=== PATIENT | female | born 1955 | race Two or more races ===

== ENCOUNTER 2025-07-14 16:52 | Inpatient (IN) | payer MEDICARE, OTHER ==
[~2025-07-14] VITALS: Ht 157.5 cm; Wt 69.9 kg
[2025-07-14 17:39] LABS: PLATELET COUNT (AUTO) 240 K/uL (150-450); RED BLOOD CELL COUNT(AUTO) 4.03 MIL/uL (4.0-5.2); RED CELL DISTRIBUTION WIDTH 16.7 % (11.5-15.0); WHITE BLOOD COUNT (AUTO) 5.0 K/uL (4.3-11.0)
[2025-07-14 17:52] LABS: ASPARTATE AMINOTRANSFERASE 13 U/L (15-37); CALCIUM, SERUM 8.6 mg/dL (8.5-10.1); CREATININE 1.1 mg/dL (0.6-1.3); SODIUM SERUM 136 mmol/L (136-145); TOTAL PROTEIN, SERUM 7.1 g/dL (6.4-8.2); UREA NITROGEN, BLOOD 20 mg/dL (7-18)
[2025-07-14] MEDS ORDERED: DEXTROSE 50%-WATER 50 ML DISP.SYRIN IV PRN (20:00)
[2025-07-14] MEDS ORDERED: ACETAMINOPHEN 325 MG TABLET PO PRN (22:00)
[2025-07-14] MEDS ORDERED: ZOLPIDEM TARTRATE 5 MG TABLET PO PRN (22:00)
[2025-07-14] MEDS: BLOOD SUGAR DIAGNOSTIC 1 EACH STRIP IN ONE (22:24)
[2025-07-14] MEDS: BLOOD SUGAR DIAGNOSTIC 1 EACH STRIP IN SCH (22:24)
[2025-07-14] MEDS: INSULIN REGULAR, HUMAN 100 UNIT/ML 3 ML VIAL SQ PRN (22:25)
[2025-07-14] MEDS ORDERED: BENZONATATE 100 MG CAPSULE PO PRN (22:30)
[2025-07-14] MEDS ORDERED: GLUTOSE 15 G GEL..GM. PO PRN (22:30)
[2025-07-14] MEDS ORDERED: ONDANSETRON HCL 4 MG/5 ML SOLUTION PO PRN (22:30)
[2025-07-14] MEDS ORDERED: GUAIFENESIN/D-METHORPHAN HB 5 ML UDC PO PRN (22:30)
[2025-07-14] MEDS ORDERED: LACTULOSE 10 G/15 ML UDC (PYXIS) PO PRN (22:30)
[2025-07-14] MEDS ORDERED: POLYETHYLENE GLYCOL 3350 17 GM POWD.PACK PO PRN (22:30)
[2025-07-14] MEDS ORDERED: BISACODYL SUPP (10 MG) 10 MG/SUPP.RECT SUPP.RECT RC PRN (22:30)
[2025-07-14 22:35] VITALS: BP 142/72; TEMP 98.8; O2SAT 95
[2025-07-14] MEDS ORDERED: ATOR10TA PO (23:29)
[2025-07-14] MEDS ORDERED: BENZ-38 PO (23:31)
[2025-07-14] MEDS ORDERED: BENZ-13 PO (23:31)
[2025-07-14] MEDS ORDERED: BISA10SU61 RC (23:34)
[2025-07-14] MEDS ORDERED: CLON0.5T4 PO (23:37)
[2025-07-14] MEDS ORDERED: CYAN10006 IJ (23:39)
[2025-07-14] MEDS ORDERED: CYAN100096 PO (23:42)
[2025-07-14] MEDS ORDERED: CYPR4TAB44 PO (23:44)
[2025-07-14] MEDS ORDERED: DOCU100C36 PO ×2 (23:45→23:47)
[2025-07-14] MEDS ORDERED: DEXT12.511 PO (23:50)
[2025-07-14] MEDS ORDERED: GUAI100S69 PO (23:53)
[2025-07-14] MEDS ORDERED: [UNRECOGNIZED DRUG - CODE] (23:57)
[2025-07-14] MEDS ORDERED: INSU100V42 (23:59)
[2025-07-15] MEDS ORDERED: LACT10SO29 PO (00:01)
[2025-07-15] MEDS ORDERED: INSU100V7 SQ (00:01)
[2025-07-15] MEDS ORDERED: LUBI24CA5 PO (00:04)
[2025-07-15] MEDS ORDERED: POLY17PO4 PO (00:05)
[2025-07-15] MEDS ORDERED: GUAI600T53 PO (00:07)
[2025-07-15] MEDS ORDERED: ONDA4TAB11 PO (00:08)
[2025-07-15] MEDS ORDERED: PANT40TA49 PO (00:09)
[2025-07-15] MEDS ORDERED: SENN-291 PO (00:10)
[2025-07-15] MEDS ORDERED: SODI100037 PO (00:12)
[2025-07-15] MEDS: QUETIAPINE FUMARATE 25 MG TABLET PO PRN (06:00)
[2025-07-15] MEDS: PANTOPRAZOLE 40 MG TABLET.DR PO SCH (06:39)
[2025-07-15 07:25] LABS: PLATELET COUNT (AUTO) 229 K/uL (150-450); RED BLOOD CELL COUNT(AUTO) 4.29 MIL/uL (4.0-5.2); RED CELL DISTRIBUTION WIDTH 16.6 % (11.5-15.0); WHITE BLOOD COUNT (AUTO) 3.3 K/uL (4.3-11.0)
[2025-07-15] MEDS ORDERED: PANTOPRAZOLE 40 MG TABLET.DR PO SCH (07:30)
[2025-07-15 07:47] LABS: CALCIUM, SERUM 8.5 mg/dL (8.5-10.1); CREATININE 0.7 mg/dL (0.6-1.3); SODIUM SERUM 139.0 mmol/L (136-145); UREA NITROGEN, BLOOD 14.0 mg/dL (7-18)
[2025-07-15 08:00] VITALS: BP 141/71; TEMP 98.1; O2SAT 97
[2025-07-15 08:08] LABS: LDL 91 mg/dL (0-99)
[2025-07-15] MEDS ORDERED: CYANOCOBALAMIN 1,000 MCG/ML VIAL IM SCH (09:00)
[2025-07-15] MEDS ORDERED: SODIUM CHLORIDE 1000 MG TABLET PO SCH (09:00)
[2025-07-15] MEDS ORDERED: SENNOSIDES/DOCUSATE SODIUM 1 TAB TABLET PO SCH (09:00)
[2025-07-15] MEDS ORDERED: DOCUSATE SODIUM 100 MG CAPSULE PO SCH (09:00)
[2025-07-15] MEDS ORDERED: POLYETHYLENE GLYCOL 3350 17 GM POWD.PACK PO SCH (09:00)
[2025-07-15] MEDS ORDERED: INSULIN GLARGINE, 100 UNIT/ML CARTRIDGE SQ SCH (09:00)
[2025-07-15] MEDS ORDERED: GUAIFENESIN LA 600 MG TABLET.SA PO SCH (09:00)
[2025-07-15] MEDS ORDERED: HEPARIN SODIUM, PORCINE 5000 UNITS/1 ML VIAL SQ SCH ×2 (09:00)
[2025-07-15] MEDS ORDERED: LACTULOSE 10 G/15 ML UDC (PYXIS) PO SCH (09:00)
[2025-07-15] MEDS ORDERED: CYANOCOBALAMIN 500 MCG TABLET PO SCH (09:00)
[2025-07-15] MEDS: DOCUSATE SODIUM 100 MG CAPSULE PO SCH (09:32)
[2025-07-15] MEDS: SODIUM CHLORIDE 1000 MG TABLET PO SCH (09:32)
[2025-07-15] MEDS: CYANOCOBALAMIN 500 MCG TABLET PO SCH (09:32)
[2025-07-15 16:00] VITALS: BP 114/76; TEMP 97.5; O2SAT 96
[2025-07-15] MEDS: SENNOSIDES/DOCUSATE SODIUM 1 UDTAB TABLET PO SCH (17:14)
[2025-07-15] MEDS: ATORVASTATIN 10 MG TABLET PO SCH (17:29)
[2025-07-15] MEDS ORDERED: ATORVASTATIN 10 MG TABLET PO SCH ×2 (18:00→22:00)
[2025-07-15 20:14] VITALS: BP 120/78; TEMP 98.2; O2SAT 96
[2025-07-16 08:00] VITALS: BP 132/81; TEMP 98.9; O2SAT 99
[2025-07-16] MEDS: POLYETHYLENE GLYCOL 3350 17 GM POWD.PACK PO PRN (09:03)
[2025-07-16] MEDS: SERTRALINE HCL 25 MG TABLET PO SCH (14:20)
[2025-07-16] MEDS: INSULIN GLARGINE, 100 UNIT/ML CARTRIDGE SQ SCH (14:49)
[2025-07-16 16:05] VITALS: BP 124/69; TEMP 98.1; O2SAT 96
[2025-07-16 16:43] LABS: APPEARANCE,URINE CLEAR (CLEAR); BLOOD, URINE TRACE-INTA Ery/uL (NEGATIVE); LEUKOCYTE ESTERASE ,URINE NEGATIVE (NEGATIVE); NITRITE, URINE POSITIVE (NEGATIVE); UGLUCOSE 2+ mg/dL (NEGATIVE)
[2025-07-16 16:55] LABS: ADD URINE CULTURE YES; SQUAMOUS EPITHELIAL CELL,UR Moderate /HPF (None Seen)
[2025-07-16 20:00] VITALS: BP 108/67; TEMP 98.1; O2SAT 96
[2025-07-16] MEDS: QUETIAPINE FUMARATE 25 MG TABLET PO SCH (21:22)
[2025-07-17 08:00] VITALS: BP 110/73; TEMP 98.1; O2SAT 97
[2025-07-17 16:00] VITALS: BP 136/80; TEMP 98.1; O2SAT 96
[2025-07-17 21:03] VITALS: BP 118/59; TEMP 97.9; O2SAT 95
[2025-07-18 08:00] VITALS: BP 126/90; TEMP 98.1; O2SAT 100
[2025-07-18 15:40] LABS: APPEARANCE,URINE CLEAR (CLEAR); BLOOD, URINE NEGATIVE Ery/uL (NEGATIVE); LEUKOCYTE ESTERASE ,URINE 1+ (NEGATIVE); NITRITE, URINE NEGATIVE (NEGATIVE); UGLUCOSE 2+ mg/dL (NEGATIVE)
[2025-07-18 15:59] LABS: SQUAMOUS EPITHELIAL CELL,UR Moderate /HPF (None Seen)
[2025-07-18 16:00] VITALS: BP_SYST 118; BP_SYST 139; BP_DIAS 58; BP_DIAS 70; TEMP 97.7; TEMP 97.9; O2SAT 95; O2SAT 98
[2025-07-18 16:17] LABS: ADD URINE CULTURE YES
[2025-07-18] MEDS: SENNOSIDES/DOCUSATE SODIUM 1 TAB TABLET PO SCH (17:14)
[2025-07-18] MEDS: OXCARBAZEPINE 150 MG TABLET PO SCH (20:17)
[2025-07-18] MEDS: CEPHALEXIN MONOHYDRATE 250 MG CAPSULE PO SCH (20:21)
[2025-07-18 20:29] VITALS: BP 114/84; TEMP 98.3; O2SAT 100
[2025-07-18] MEDS: INSULIN GLARGINE, 100 UNIT/ML CARTRIDGE SQ SCH (21:25)
[2025-07-19 08:00] VITALS: BP 119/68; TEMP 97.7; O2SAT 98
[2025-07-19 16:00] VITALS: BP 122/68; TEMP 98.4; O2SAT 97
[2025-07-19 20:03] VITALS: BP 122/71; TEMP 98.2; O2SAT 95
[2025-07-20 08:00] VITALS: BP 124/79; TEMP 98.6; O2SAT 97
[2025-07-20 16:00] VITALS: BP 119/75; TEMP 98.7; O2SAT 97
[2025-07-20] MEDS: MAG HYDROX/AL HYDROX/SIMETH 30 ML UDC PO PRN (18:03)
[2025-07-20 20:00] VITALS: BP 143/65; TEMP 98.6; O2SAT 95
[2025-07-20] MEDS: QUETIAPINE FUMARATE 25 MG TABLET PO SCH (20:03)
[2025-07-20 20:09] VITALS: BP 143/65; TEMP 98.6; O2SAT 95
[2025-07-21 08:00] VITALS: BP 156/92; TEMP 97.5; O2SAT 98
[2025-07-21] MEDS: NITROFURANTOIN/MONOHYDRATE MACROCRYSTALS 100 MG CAPSULE PO SCH (12:21)
[2025-07-21] MEDS: OXCARBAZEPINE 150 MG TABLET PO SCH (13:14)
[2025-07-21 16:00] VITALS: BP 128/76; TEMP 98.2; O2SAT 98
[2025-07-21] MEDS: MAGNESIUM HYDROXIDE 30 ML UDC PO PRN (16:40)
[2025-07-21 20:00] VITALS: BP 132/70; TEMP 98; O2SAT 98
[2025-07-22 08:00] VITALS: BP 134/81; TEMP 97.7; O2SAT 98
[2025-07-22 16:00] VITALS: BP 120/59; TEMP 98; O2SAT 100
[2025-07-22 21:42] VITALS: BP 138/70; TEMP 98.4; O2SAT 98
[2025-07-23 08:00] VITALS: BP 138/95; TEMP 97.6; O2SAT 98
[2025-07-23] MEDS: QUETIAPINE FUMARATE 25 MG TABLET PO SCH (08:38)
[2025-07-23 16:11] VITALS: BP 128/77; TEMP 98.2; O2SAT 97
[2025-07-23 21:58] VITALS: BP 125/66; TEMP 98.2; O2SAT 96
[2025-07-24 08:00] VITALS: BP 131/61; TEMP 98.2; O2SAT 96
[2025-07-24 16:00] VITALS: BP 133/74; TEMP 97.9; O2SAT 99
[2025-07-24 20:12] VITALS: BP 132/69; TEMP 97.7; O2SAT 95
[2025-07-25 08:00] VITALS: BP 112/78; TEMP 97.8; O2SAT 99
[2025-07-25 16:00] VITALS: BP 117/64; TEMP 97.7; O2SAT 97
[2025-07-25 19:38] VITALS: BP 112/55; TEMP 97.7; O2SAT 99
[2025-07-26 08:00] VITALS: BP 116/65; TEMP 97.9; O2SAT 100
[2025-07-26] MEDS: QUETIAPINE FUMARATE 25 MG TABLET PO SCH (13:36)
[2025-07-26 16:07] VITALS: BP 127/69; TEMP 98.1; O2SAT 98
[2025-07-26 20:13] VITALS: BP 112/80; TEMP 98.4; O2SAT 100
[2025-07-27 08:00] VITALS: BP 116/66; TEMP 98.1; O2SAT 99
[2025-07-27] MEDS: SERTRALINE HCL 25 MG TABLET PO SCH (08:06)
[2025-07-27 16:00] VITALS: BP 127/62; TEMP 98.7; O2SAT 96
[2025-07-27 20:09] VITALS: BP 111/55; TEMP 98.4; O2SAT 99
[2025-07-28] MEDS ORDERED: LORAZEPAM INJ 2 MG/ML VIAL IM STA (07:57)
[2025-07-28 08:00] VITALS: BP 125/72; TEMP 98; O2SAT 96
[2025-07-28] MEDS ORDERED: HALOPERIDOL LACTATE INJ 5 MG/ML VIAL IM ONE (08:00)
== END 2025-07-28 13:22 | DRG 885 ==
LOC: ER 16:55 → GPS 20:36
PROVIDERS: ADMIT Psychiatry & Neurology Psychiatry; ATTEND Nurse Practitioner Acute Care
DX: F39 Unspecified mood [affective] disorder (principal); E11.65 Type 2 diabetes mellitus with hyperglycemia; I11.0 Hypertensive heart disease with heart failure; G93.40 Encephalopathy, unspecified; E44.0 Moderate protein-calorie malnutrition; Z66 Do not resuscitate; F03.92 Unspecified dementia, unspecified severity, with psychotic disturbance; F33.9 Major depressive disorder, recurrent, unspecified; F29 Unspecified psychosis not due to a substance or known physiological condition; E66.9 Obesity, unspecified; I50.32 Chronic diastolic (congestive) heart failure; F03.93 Unspecified dementia, unspecified severity, with mood disturbance; F03.94 Unspecified dementia, unspecified severity, with anxiety; E88.09 Other disorders of plasma-protein metabolism, not elsewhere classified; E78.5 Hyperlipidemia, unspecified; Z86.711 Personal history of pulmonary embolism; M19.90 Unspecified osteoarthritis, unspecified site; Z73.6 Limitation of activities due to disability; F41.9 Anxiety disorder, unspecified; Z68.28 Body mass index [BMI] 28.0-28.9, adult; Z79.4 Long term (current) use of insulin; Z79.899 Other long term (current) drug therapy
CPT/HCPCS: 36415; 70150-TC; 74018; 80048-TC; 80061-TC; 80076-TC; 81001; 82962-TC; 85025-TC; 87081-TC; 87086-TC; 87186-TC; 97110-TC; 97116-TC; 97530-TC; 98960; J1644; J1815; Q0162